=== PATIENT | female | born 2000 | race Caucasian/White ===

== ENCOUNTER 2020-09-17 13:24 | Emergency (ER) | payer OTHER ==
[~2020-09-17] VITALS: Ht 165.1 cm; Wt 52.2 kg
[2020-09-17] MEDS ORDERED: HYDROXYZINE HCL25 M2 PO (13:37)
[2020-09-17] MEDS ORDERED: SINGULAIR 10 MG10 M1 PO (13:37)
[2020-09-17] MEDS ORDERED: LEXAPRO20 MG PO (13:37)
[2020-09-17] MEDS ORDERED: ZYRTEC10 M5 PO (13:37)
[2020-09-17] MEDS ORDERED: BIRTH CONTROL (13:38)
[2020-09-17 14:24] LABS: ABSOLUTE LYMPHOCYTES 1.8 thou/uL (0.8-5.3); ABSOLUTE MONOCYTES 0.3 thou/uL (0.0-1.2); ABSOLUTE NEUTROPHILS 3.2 thou/uL (1.6-8.1); BASOPHILS 0.6 %; EOSINOPHILS 0.4 %; HEMOGLOBIN 12.8 gm/dL (12.0-15.0); MCH 29.6 pg (26.0-34.0); MCHC 32.8 g/dL (28.0-37.0); MCV 90.4 fL (80.0-100.0); MONOCYTES 5.7 %; MPV 6.7 fl. (7.2-11.1); NUCLEATED RBCS 0 /100WBC; PLATELET COUNT* 317 thou/uL (150-400); POLYS 59.3 %; RBC 4.32 mil/uL (4.20-5.00); RDW-CV 13.2 % (10.5-14.5); WBC 5.4 thou/uL (4.0-11.0)
[2020-09-17 14:32] LABS: CALCIUM 8.9 mg/dL (8.5-10.1); CREATININE 0.8 mg/dL (0.6-1.3); POTASSIUM 3.5 mmol/L (3.5-5.1)
[2020-09-17 14:42] LABS: ALBUMIN 3.5 g/dL (3.4-5.0); TOTAL BILIRUBIN 0.3 mg/dL (<0.1-1.0); TOTAL PROTEIN 7.3 g/dL (6.4-8.2)
[2020-09-17 15:54] LABS: URINE BILIRUBIN NEGATIVE (Negative); URINE BLOOD NEGATIVE (Negative); URINE CLARITY CLEAR; URINE COLOR YELLOW; URINE GLUCOSE-RANDOM NEGATIVE (Negative); URINE KETONES NEGATIVE (Negative); URINE LEUKOCYTES-REFLEX NEGATIVE (Negative); URINE NITRITE-REFLEX NEGATIVE (Negative); URINE PROTEIN NEGATIVE (Negative); URINE SPECIFIC GRAVITY 1.015 (1.005-1.030); URINE UROBILINOGEN 0.2 E.U./dl (0.2-1.0)
[2020-09-17 16:15] VITALS: BP 99/58
--- NOTE | 2020-09-18 09:56 | EKG ---
[place] [address] ELECTROCARDIOGRAM REPORT Name: JERMAINE LEONG Room: [facility]#: [id number] Admission: 09/17/20 Attend Phys: Discharge: 09/17/20 Date of : 00 Date of Service: 09/17/20 1447 Report #: [id number] THIS REPORT FOR: //name// [facility] ED Test Date: 2020-09-17 Test Time: 14:47:46 Pat Name: JERMAINE LEONG Department: Room: Gender: Director Of Front Office: : 2000 Requested By: Nancy Samuels Order Number: [id number] MD: Guero Armenta Measurements Intervals [place] Rate: 74 P: 79 [place]: 112 QRS: 62 QRSD: 94 T: 26 QT: 423 QTc: 470 Interpretive Statements Sinus rhythm Borderline short [place] interval No previous ECG available for comparison Electronically Signed On 09-18-2020 9:56:44 CDT by Guero Armenta [email or web address] <ELECTRONICALLY SIGNED> By: Guero Armenta MD, [facility] 09/18/20 0956 1447 1447 Guero Armenta MD, FACC /EPI
== END 2020-09-17 16:53 | disposition home or self-care (01) ==
LOC: M.ERS 13:24
PROVIDERS: Nurse Practitioner Family
DX: R42 Dizziness and giddiness (principal); R59.1 Generalized enlarged lymph nodes

== ENCOUNTER 2021-01-18 19:28 | Emergency (ER) | payer OTHER ==
[~2021-01-18] VITALS: Ht 165.1 cm; Wt 49.9 kg
[~2021-01-18 19:28] MED LIST: BIRTH CONTROL; HYDROXYZINE HCL25 M2 PO; LEXAPRO20 MG PO; SINGULAIR 10 MG10 M1 PO; ZYRTEC10 M5 PO
[2021-01-18 21:43] VITALS: BP 110/54
== END 2021-01-18 21:44 | disposition home or self-care (01) ==
LOC: M.ERS 19:28
DX: S93.602A Unspecified sprain of left foot, initial encounter (principal); X50.1XXA Overexertion from prolonged static or awkward postures, initial encounter; Y93.89 Activity, other specified; Y92.89 Other specified places as the place of occurrence of the external cause; Y99.8 Other external cause status

== ENCOUNTER 2021-06-23 10:45 | Emergency (ER) | payer OTHER ==
[~2021-06-23] VITALS: Ht 165.1 cm; Wt 49.9 kg
[2021-06-23 12:02] LABS: URINE BLOOD 2+ (Negative); URINE CLARITY CLEAR; URINE COLOR YELLOW; URINE GLUCOSE-RANDOM NEGATIVE (Negative); URINE KETONES 1+ (Negative); URINE LEUKOCYTES-REFLEX NEGATIVE (Negative); URINE NITRITE-REFLEX NEGATIVE (Negative); URINE PROTEIN NEGATIVE (Negative); URINE SPECIFIC GRAVITY >= 1.030 (1.005-1.030); URINE UROBILINOGEN 0.2 E.U./dl (0.2-1.0)
[2021-06-23 12:10] LABS: ICTOTEST (BILI CONFIRMATORY) Negative (Negative); URINE BILIRUBIN 1+ (Negative)
[2021-06-23 12:12] LABS: BACTERIA-REFLEX None Seen /HPF (None Seen); CASTS None Seen /LPF (None Seen); CRYSTALS None Seen /LPF (None Seen); SQUAMOUS NONE SEEN /LPF (0-3); URINE RBC 3-10 Few /HPF (0-2); URINE WBC-REFLEX None Seen /HPF (0-5)
[2021-06-23 12:28] LABS: ABSOLUTE LYMPHOCYTES 1.4 thou/uL (0.8-5.3); ABSOLUTE MONOCYTES 0.4 thou/uL (0.0-1.2); ABSOLUTE NEUTROPHILS 5.9 thou/uL (1.6-8.1); BASOPHILS 0.3 %; EOSINOPHILS 0.4 %; HEMATOCRIT 41.5 % (37.0-47.0); HEMOGLOBIN 14.1 gm/dL (12.0-15.0); LYMPHOCYTES 17.8 %; MCH 31.1 pg (26.0-34.0); MCHC 33.9 g/dL (28.0-37.0); MCV 91.6 fL (80.0-100.0); MONOCYTES 5.3 %; MPV 7.4 fl. (7.2-11.1); NUCLEATED RBCS 0 /100WBC; PLATELET COUNT* 361 thou/uL (150-400); POLYS 76.2 %; RBC 4.53 mil/uL (4.20-5.00); RDW-CV 13.4 % (10.5-14.5); WBC 7.7 thou/uL (4.0-11.0)
[2021-06-23 12:37] LABS: CALCIUM 9.2 mg/dL (8.5-10.1); CREATININE 0.9 mg/dL (0.6-1.3); POTASSIUM 3.6 mmol/L (3.5-5.1)
[2021-06-23 12:41] LABS: ALBUMIN 3.8 g/dL (3.4-5.0); TOTAL BILIRUBIN 0.4 mg/dL (<0.1-1.0); TOTAL PROTEIN 7.5 g/dL (6.4-8.2)
--- NOTE | 2021-06-23 12:58 | EKG ---
[place] [address] ELECTROCARDIOGRAM REPORT Name: JERMAINE LEONG Room: [facility]#: [id number] Admission: 06/23/21 Attend Phys: Discharge: Date of : 00 Date of Service: 06/23/21 1220 Report #: [id number] THIS REPORT FOR: //name// [facility] ED Test Date: 2021-06-23 Test Time: 12:20:32 Pat Name: JERMAINE LEONG Department: Room: Gender: F Last Code Striper: [facility] : 2000 Requested By: Nancy Samuels Order Number: [id number] MD: Simeon Barry Measurements Intervals [place] Rate: 67 P: 62 [place]: 107 QRS: 62 QRSD: 96 T: 29 QT: 400 QTc: 423 Interpretive Statements Sinus rhythm Atrial premature complex Short [place] interval Compared to ECG 09/17/2020 14:47:46 Atrial premature complex(es) now present Electronically Signed On 06-23-2021 12:57:58 DIRECTOR OF STATE by Simeon Barry [email or web address] <ELECTRONICALLY SIGNED> By: Simeon Barry MD, FACC 06/23/21 1257 1220 1220 Simeon Barry MD, FAC /EPI
[2021-06-23] MEDS ORDERED: IBUPROFEN 600600 M1 PO (14:21)
[2021-06-23] MEDS ORDERED: DICYCLOMINE HCL20 MG PO (14:21)
[2021-06-23 14:40] VITALS: BP 112/62
== END 2021-06-23 14:42 | disposition home or self-care (01) ==
LOC: M.ERS 10:45
PROVIDERS: Nurse Practitioner Family
DX: N28.1 Cyst of kidney, acquired (principal); Z20.822 Contact with and (suspected) exposure to COVID-19; R10.12 Left upper quadrant pain; F12.90 Cannabis use, unspecified, uncomplicated; Z79.899 Other long term (current) drug therapy